=== PATIENT | female | born 1955 | race Caucasian/White ===

== ENCOUNTER 2023-02-16 12:07 | Emergency (ER) | payer MEDICARE, BC | END 2023-02-16 13:43 | disposition home or self-care (01) | LOC: JP.ED 12:07 | DX: K12.0 Recurrent oral aphthae (principal); I10 Essential (primary) hypertension; Z86.16 Personal history of COVID-19; Z79.899 Other long term (current) drug therapy | CPT/HCPCS: 99282 ==